=== PATIENT | female | born 1985 | race Caucasian/White ===

== ENCOUNTER 2019-02-05 09:51 | Emergency (ER) | payer SELFPAY ==
[~2019-02-05] VITALS: Ht 170.2 cm; Wt 81.6 kg
[2019-02-05 10:04] VITALS: BP 126/83
[2019-02-05] MEDS ORDERED: KETOROLAC TROMETH 60MG/2ML VIAL IM ONE (10:30)
== END 2019-02-05 11:08 | disposition home or self-care (01) ==
LOC: EDBD 09:51 → ER 10:00
DX: M54.5 Low back pain (principal)
CPT/HCPCS: 96372; 99283; J1885